=== PATIENT | male | born 1970 ===

== ENCOUNTER 2017-05-31 01:13 | Observation (INO) | payer OTHER ==
[2017-05-31] MEDS: LEVALBUTEROL (NEB) 1.25 MG/0.5 ML AMP HHN (03:48)
[2017-05-31] MEDS: IPRATROPIUM (NEB) 0.5 MG/2.5 ML AMP HHN (03:48)
[2017-05-31 04:08] LABS: WHITE BLOOD COUNT 4.5 10^3/ul (4.8-10.8)
[2017-05-31 04:08] LABS: HEMATOCRIT 30.3 % (42.0-52.0); HEMOGLOBIN 9.7 g/dl (14.0-18.0); MEAN CORPUSCULAR HEMOGLOBIN 26.4 pg (29.0-33.0); MEAN CORPUSCULAR VOLUME 82.3 fl (82.0-101.0); MEAN PLATELET VOLUME 9.5 fl (7.4-10.4); PLATELET COUNT 147 10^3/UL (140-415); RED BLOOD COUNT 3.68 10^6/ul (4.70-6.10); RED CELL DISTRIBUTION WIDTH 17.6 % (11.5-14.5)
[2017-05-31 04:10] LABS: ADD MAN DIFF? YES
[2017-05-31 04:24] LABS: PROTIME 15.4 Sec (11.9-14.9); PT RATIO 1.2
[2017-05-31 04:25] LABS: PARTIAL THROMBOPLASTIN TIME 32.1 Sec (25.0-35.0)
[2017-05-31 04:34] LABS: ANION GAP 14 (8-16); BLOOD UREA NITROGEN 26 mg/dl (7-20); CALCIUM 9.3 mg/dl (8.4-10.2); CARBON DIOXIDE 22 mmol/L (21-31); CHLORIDE 104 mmol/L (97-110); CREATININE 0.83 mg/dl (0.61-1.24); GLUCOSE 88 mg/dl (70-220); POTASSIUM 4.4 mmol/L (3.5-5.1); SODIUM 136 mmol/L (135-144)
[2017-05-31 04:46] LABS: B-TYPE NATRIURETIC PEPTIDE 2510 PG/ML (0-125); TROPONIN-I 0.014 ng/ml (0.00-0.12)
[2017-05-31] MEDS: FUROSEMIDE 20 MG INJ IV ×2 (05:55→18:00)
[2017-05-31] MEDS ORDERED: ACETAMINOPHEN 325 MG TAB PO (06:00)
[2017-05-31] MEDS ORDERED: ONDANSETRON 4 MG INJ IV (06:00)
[2017-05-31] MEDS ORDERED: NACL 0.9% 3 ML SYG IV (06:00)
[2017-05-31 06:07] LABS: ANISOCYTOSIS 1+ (0-0); EOSINOPHILS % (M) 4 % (0-7); GIANT THROMBO% (M) 4 % (0-0); LYMPHOCYTES #M 0.6 10^3/ul (0.8-2.9); LYMPHOCYTES % (M) 14 % (15-51); MONOCYTE #M 0.9 10^3/ul (0.3-0.9); MONOCYTES % (M) 22 % (0-11); PLATELET ESTIMATE NORMAL; POIKILOCYTOSIS 1+ (0-0); POLYCHROMASIA 3+ (0-0); SEGMENTED NEUTROPHILS (M) % 60 % (39-77); SMUDGE%M 13 % (0-0)
[2017-05-31] MEDS ORDERED: GUAIFENESIN/DM 5ML CUP PO (09:00)
[2017-05-31] MEDS ORDERED: ALBUTEROL 0.083% (NEB) 2.5 MG/3 ML AMP HHN (09:00)
[2017-05-31] MEDS ORDERED: morphine 2 MG INJ IV (09:30)
[2017-05-31] MEDS ORDERED: NITROGLYCERIN (SL) 0.4 MG TAB SL (09:30)
[2017-05-31 09:39] LABS: MAGNESIUM 1.8 mg/dl (1.7-2.5)
[2017-05-31 09:39] LABS: CHOL/HDL RATIO 1.8 RATIO; CHOLESTEROL 115 mg/dl (100-200); HDL CHOLESTEROL 62 mg/dl (27-67); LDL CHOLESTEROL,CALCULATED 45 mg/dl; TRIGLYCERIDES 41 mg/dl (0-149)
[2017-05-31 09:40] LABS: CREATINE KINASE 206 IU/L (23-200)
[2017-05-31 09:52] LABS: CK INDEX 1.1
[2017-05-31 09:55] LABS: IRON 30 ug/dl (35-150)
[2017-05-31 10:04] LABS: % IRON SATURATION 6 % SAT (22-52); TOTAL IRON BINDING CAPACITY 498 ug/dl (241-421)
[2017-05-31 10:07] LABS: CK-MB 2.36 ng/ml (0.0-2.4); TROPONIN-I < 0.012 ng/ml (0.00-0.12)
[2017-05-31 10:09] LABS: ALANINE AMINOTRANSFERASE 43 IU/L (13-69); ALBUMIN 3.7 g/dl (3.3-4.9); ALKALINE PHOSPHATASE 98 IU/L (42-121); ASPARTATE AMINO TRANSFERASE 38 IU/L (15-46); BILIRUBIN,INDIRECT 0.7 mg/dl (0-1.1); BILIRUBIN,TOTAL 0.7 mg/dl (0.2-1.3); TOTAL PROTEIN 6.7 g/dl (6.1-8.1)
[2017-05-31 10:10] LABS: THYROID STIMULATING HORMONE 0.859 MIU/L (0.465-4.680)
[2017-05-31] MEDS: ASPIRIN 81 MG TAB PO (13:00)
[2017-05-31] MEDS: LISINOPRIL 20 MG TAB PO (13:06)
[2017-05-31] MEDS: AZITHROMYCIN 250 MG TAB PO (13:07)
[2017-05-31] MEDS: ASPIRIN 325 MG TAB PO (13:08)
[2017-05-31] MEDS: HYDROCODONE/APAP (5/325) TAB PO (13:18)
[2017-05-31 18:18] LABS: CREATINE KINASE 196 IU/L (23-200)
[2017-05-31 18:31] LABS: CK INDEX 1.1; CK-MB 2.11 ng/ml (0.0-2.4); TROPONIN-I < 0.012 ng/ml (0.00-0.12)
[2017-05-31] MEDS ORDERED: LORAZEPAM 2 MG INJ IV (20:30)
[2017-05-31] MEDS: LORAZEPAM 2 MG INJ IV (20:54)
[2017-05-31] MEDS: RISPERIDONE 2 MG TAB PO (20:54)
[2017-06-01] MEDS: LORAZEPAM 2 MG INJ IV (05:45)
[2017-06-01] MEDS: FUROSEMIDE 20 MG INJ IV (06:00)
[2017-06-01 06:21] LABS: WHITE BLOOD COUNT 4.5 10^3/ul (4.8-10.8)
[2017-06-01 06:21] LABS: HEMATOCRIT 29.6 % (42.0-52.0); HEMOGLOBIN 9.4 g/dl (14.0-18.0); MEAN CORPUSCULAR HEMOGLOBIN 26.4 pg (29.0-33.0); MEAN CORPUSCULAR HGB CONC 31.8 g/dl (32.0-37.0); MEAN CORPUSCULAR VOLUME 83.1 fl (82.0-101.0); MEAN PLATELET VOLUME 9.9 fl (7.4-10.4); PLATELET COUNT 143 10^3/UL (140-415); POSITIVE DIFF @See below; RED BLOOD COUNT 3.56 10^6/ul (4.70-6.10); RED CELL DISTRIBUTION WIDTH 18.1 % (11.5-14.5)
[2017-06-01 06:28] LABS: ADD MAN DIFF? YES
[2017-06-01 06:54] LABS: ALANINE AMINOTRANSFERASE 36 IU/L (13-69); ALBUMIN 3.8 g/dl (3.3-4.9); ALBUMIN/GLOBULIN RATIO 1.22; ALKALINE PHOSPHATASE 95 IU/L (42-121); ANION GAP 12 (8-16); ASPARTATE AMINO TRANSFERASE 34 IU/L (15-46); BILIRUBIN,INDIRECT 0.6 mg/dl (0-1.1); BILIRUBIN,TOTAL 0.6 mg/dl (0.2-1.3); BLOOD UREA NITROGEN 31 mg/dl (7-20); CALCIUM 9.4 mg/dl (8.4-10.2); CARBON DIOXIDE 26 mmol/L (21-31); CHLORIDE 102 mmol/L (97-110); CREATININE 1.02 mg/dl (0.61-1.24); GLUCOSE 89 mg/dl (70-220); POTASSIUM 4.2 mmol/L (3.5-5.1); SODIUM 136 mmol/L (135-144); TOTAL PROTEIN 6.9 g/dl (6.1-8.1)
[2017-06-01] MEDS: LISINOPRIL 20 MG TAB PO (07:36)
[2017-06-01] MEDS: ASPIRIN 81 MG TAB PO (08:01)
[2017-06-01 09:18] LABS: ACANTHOCYTES 1+ (0-0); ANISOCYTOSIS 1+ (0-0); BASOPHILS % (M) 1 % (0-2); ECHINOCYTOSIS 1+ (0-0); ELLIPTO 1+ (0-0); EOSINOPHILS % (M) 6 % (0-7); GIANT THROMBO% (M) 2 % (0-0); HYPOCHROMASIA 1+ (0-0); LYMPHOCYTES #M 0.5 10^3/ul (0.8-2.9); LYMPHOCYTES % (M) 12 % (15-51); MONOCYTES % (M) 24 % (0-11); OVALOCYTES 1+ (0-0); POIKILOCYTOSIS 1+ (0-0); POLYCHROMASIA 2+ (0-0); SCHISTOCYTES 1+ (0-0); SEGMENTED NEUTROPHILS (M) % 57 % (39-77); SMUDGE%M 7 % (0-0); TARGET CELLS 1+ (0-0)
[2017-06-02] MEDS ORDERED: AZITHROMYCIN 250 MG TAB PO (09:00)
== END 2017-06-01 11:30 | disposition left against medical advice (07) ==
LOC: E/R 01:13 → MS3 05:27
DX: R07.9 Chest pain, unspecified (principal); I11.0 Hypertensive heart disease with heart failure; I50.9 Heart failure, unspecified; J06.9 Acute upper respiratory infection, unspecified; F20.9 Schizophrenia, unspecified; F31.9 Bipolar disorder, unspecified; M06.9 Rheumatoid arthritis, unspecified; Z91.14 Patient's other noncompliance with medication regimen; Z88.6 Allergy status to analgesic agent
CPT/HCPCS: 71045; 80048; 80053; 80061; 80076; 82550; 82553; 83036; 83540; 83735; 83880; 84443; 84484; 85025; 85610; 85730; 93005; 93306; 93970; 94664; 96374; 99217; 99285-25; J1940